=== PATIENT | female | born 1985 | race Caucasian/White ===

== ENCOUNTER 2021-02-20 18:41 | Emergency (ER) | payer MEDICAID ==
[~2021-02-20] VITALS: Ht 165.1 cm; Wt 82.0 kg
[~2021-02-20 18:41] MED LIST: KEPPRA
[2021-02-20] MEDS ORDERED: AMOX-424 MT (23:40)
[2021-02-21 00:01] VITALS: BP 136/66
== END 2021-02-21 00:02 | disposition home or self-care (01) ==
LOC: ER 18:41
DX: S51.852A Open bite of left forearm, initial encounter (principal); S51.851A Open bite of right forearm, initial encounter; S41.051A Open bite of right shoulder, initial encounter; S51.051A Open bite, right elbow, initial encounter; G40.909 Epilepsy, unspecified, not intractable, without status epilepticus; Z88.0 Allergy status to penicillin; Z88.5 Allergy status to narcotic agent; W54.0XXA Bitten by dog, initial encounter; Y93.01 Activity, walking, marching and hiking; Y92.480 Sidewalk as the place of occurrence of the external cause
CPT/HCPCS: 12004; 73030; 73080; 73090; 99284; Z7610